=== PATIENT | female | born 1995 | race African-American/Black ===

== ENCOUNTER 2022-06-01 05:25 | Emergency (ER) | payer OTHER ==
[~2022-06-01] VITALS: Ht 167.6 cm; Wt 61.4 kg
[2022-06-01 05:26] VITALS: BP 134/98
[2022-06-01] MEDS ORDERED: HYDR25OIN TOP (06:43)
== END 2022-06-01 06:52 | disposition home or self-care (01) ==
LOC: M ED 05:25
DX: L25.9 Unspecified contact dermatitis, unspecified cause (principal)

== ENCOUNTER 2022-07-06 09:24 | Emergency (ER) | payer OTHER ==
[~2022-07-06] VITALS: Ht 167.6 cm; Wt 58.0 kg
[~2022-07-06 09:24] MED LIST: HYDR25OIN TOP
[2022-07-06] MEDS ORDERED: IBUPROFEN 600MG TAB PO ONE (11:00)
[2022-07-06] MEDS ORDERED: ONDANSETRON 4MG ORAL DISINTEGRATING TAB PO ONE (11:00)
[2022-07-06 11:45] VITALS: BP 136/94
== END 2022-07-06 11:47 | disposition home or self-care (01) ==
LOC: M ED 09:24
DX: S00.33XA Contusion of nose, initial encounter (principal); W22.8XXA Striking against or struck by other objects, initial encounter; Y92.138 Other place on military base as the place of occurrence of the external cause; Y99.1 Military activity

== ENCOUNTER 2022-10-12 02:43 | Emergency (ER) | payer OTHER ==
[~2022-10-12] VITALS: Ht 167.6 cm; Wt 59.1 kg
[2022-10-12 02:44] VITALS: BP 138/100
== END 2022-10-12 11:18 | disposition left against medical advice (07) ==
LOC: M ED 02:43
DX: Z53.21 Procedure and treatment not carried out due to patient leaving prior to being seen by health care provider (principal)

== ENCOUNTER 2022-10-12 12:02 | Emergency (ER) | payer OTHER ==
[~2022-10-12] VITALS: Ht 167.6 cm; Wt 59.4 kg
[2022-10-12 14:57] VITALS: BP 136/89
== END 2022-10-12 15:02 | disposition home or self-care (01) ==
LOC: M ED 12:02
DX: R50.9 Fever, unspecified (principal); B34.8 Other viral infections of unspecified site

== ENCOUNTER 2023-02-20 17:09 | Emergency (ER) | payer OTHER ==
[~2023-02-20] VITALS: Ht 165.1 cm; Wt 63.2 kg
[2023-02-20] MEDS ORDERED: ADDE20CA3 PO (17:16)
[2023-02-20] MEDS ORDERED: AMIT10TA7 PO (17:16)
[2023-02-20] MEDS ORDERED: IBUP-1022 PO (20:11)
[2023-02-20 20:18] VITALS: BP 138/108
== END 2023-02-20 20:29 | disposition home or self-care (01) ==
LOC: M ED 17:09
DX: U07.1 COVID-19 (principal); N93.9 Abnormal uterine and vaginal bleeding, unspecified

== ENCOUNTER 2023-04-30 08:16 | Emergency (ER) | payer OTHER ==
[~2023-04-30] VITALS: Ht 167.6 cm; Wt 63.6 kg
[~2023-04-30 08:16] MED LIST changes: +ADDE20CA3 PO; +AMIT10TA7 PO; +IBUP-1022 PO
[2023-04-30 13:38] LABS: GC DNA AMPLIFICATION NEGATIVE (NEGATIVE)
[2023-04-30] MEDS ORDERED: DOXYCYCLINE HYCLATE 100MG TABLET PO ONE (13:50)
[2023-04-30] MEDS ORDERED: DOXY100T PO (13:53)
[2023-04-30 14:08] VITALS: BP 134/97; TEMP 98.2; O2SAT 100
== END 2023-04-30 14:34 | disposition home or self-care (01) ==
LOC: M ED 08:16
DX: A74.9 Chlamydial infection, unspecified (principal); F90.9 Attention-deficit hyperactivity disorder, unspecified type; Z79.899 Other long term (current) drug therapy

== ENCOUNTER 2023-06-23 09:49 | Emergency (ER) | payer OTHER ==
[~2023-06-23] VITALS: Ht 167.6 cm; Wt 61.4 kg
[2023-06-23 09:49] VITALS: TEMP 98.7
[~2023-06-23 09:49] MED LIST changes: +DOXY100T PO
[2023-06-23] MEDS ORDERED: PNV,1TAB3 (10:23)
[2023-06-23] MEDS ORDERED: NAPR-837 PO (13:24)
[2023-06-23 13:34] VITALS: BP 140/90; O2SAT 100
== END 2023-06-23 13:36 | disposition home or self-care (01) ==
LOC: M ED 09:49
DX: S63.92XA Sprain of unspecified part of left wrist and hand, initial encounter (principal); W10.8XXA Fall (on) (from) other stairs and steps, initial encounter; Y92.89 Other specified places as the place of occurrence of the external cause; Y93.89 Activity, other specified; Y99.8 Other external cause status; F90.9 Attention-deficit hyperactivity disorder, unspecified type; Z79.899 Other long term (current) drug therapy

== ENCOUNTER 2023-07-24 18:30 | Emergency (ER) | payer OTHER ==
[~2023-07-24] VITALS: Ht 167.6 cm; Wt 60.9 kg
[~2023-07-24 18:30] MED LIST changes: +NAPR-837 PO; +PNV,1TAB3
[2023-07-24 18:31] VITALS: BP 138/97; TEMP 98.6; O2SAT 100
[2023-07-24 22:02] LABS: BASO # 0.1 10^3/uL (0.0-0.2); BASO % 0.7 % (0.0-1.0); EOS # 0.1 10^3/uL (0.0-0.5); EOS % 0.7 % (0.0-3.0); HEMATOCRIT 35.3 % (36.0-47.0); HEMOGLOBIN 11.3 g/dl (12.0-15.5); LYMPH # 2.5 10^3/uL (1.5-5.0); LYMPH % 36.8 % (24.0-44.0); MEAN CORPUSCULAR HEMOGLOBIN 28.3 pg (27.0-33.0); MEAN CORPUSCULAR VOLUME 88.5 fl (80.0-96.0); MONO # 0.5 10^3/uL (0.0-0.8); MONO % 7.8 % (2.0-8.0); NEUTROPHILS # 3.7 10^3/uL (1.5-8.5); NEUTROPHILS % 53.7 % (36.0-66.0); PLATELET COUNT, AUTOMATED 414 10^3/uL (150-450); RED BLOOD COUNT 3.99 10^6/uL (4.00-5.40); WHITE BLOOD COUNT 6.9 10^3/uL (4.0-10.0)
[2023-07-24 22:37] LABS: MONO SCRN NEGATIVE (NEGATIVE)
[2023-07-24 22:38] LABS: RSV AMPLIFICATION NEGATIVE (NEGATIVE)
[2023-07-24] MEDS ORDERED: PRED20TA PO (22:44)
[2023-07-24] MEDS ORDERED: ONDA4TAB6 PO (22:44)
[2023-07-24] MEDS ORDERED: VALA1TAB5 PO (22:44)
[2023-07-26] MEDS ORDERED: AMOX500C PO (13:02)
== END 2023-07-24 22:50 | disposition home or self-care (01) ==
LOC: M ED 18:30
DX: B95.0 Streptococcus, group A, as the cause of diseases classified elsewhere (principal); R21 Rash and other nonspecific skin eruption; M79.10 Myalgia, unspecified site

== ENCOUNTER 2023-08-28 22:20 | Emergency (ER) | payer OTHER ==
[~2023-08-28] VITALS: Ht 170.2 cm; Wt 60.0 kg
[~2023-08-28 22:20] MED LIST changes: +AMOX500C PO; +MIRA3350 PO; +ONDA4TAB6 PO; +PRED20TA PO; +VALA1TAB5 PO
[2023-08-29 01:28] VITALS: BP 115/65; TEMP 98.9; O2SAT 100
[2023-08-29] MEDS ORDERED: SANTYL OINT 30GM TOP ONE (01:45)
[2023-08-29] MEDS ORDERED: NORCO, ANEXSIA 5/325MG TABLET (HYDROcodone/ACETAMINOPHEN) PO ONE (01:45)
[2023-08-29] MEDS ORDERED: BACITRACIN OINTMENT 30GM TUBE TOP ONE (01:45)
[2023-08-29] MEDS ORDERED: SANT250O8 TOP (01:50)
[2023-08-29] MEDS ORDERED: CEPH500C PO (01:50)
[2023-08-29] MEDS ORDERED: BACI500O8 TOP (01:50)
[2023-08-29] MEDS ORDERED: HYDR-3713 PO (01:50)
== END 2023-08-29 03:05 | disposition home or self-care (01) ==
LOC: M ED 22:20
DX: T24.211A Burn of second degree of right thigh, initial encounter (principal); T24.212A Burn of second degree of left thigh, initial encounter; T31.0 Burns involving less than 10% of body surface; X12.XXXA Contact with other hot fluids, initial encounter; Y92.009 Unspecified place in unspecified non-institutional (private) residence as the place of occurrence of the external cause; Y93.89 Activity, other specified; F90.9 Attention-deficit hyperactivity disorder, unspecified type; Z79.899 Other long term (current) drug therapy

== ENCOUNTER 2023-09-26 18:01 | Emergency (ER) | payer OTHER ==
[~2023-09-26] VITALS: Ht 167.6 cm; Wt 62.7 kg
[~2023-09-26 18:01] MED LIST changes: +BACI500O8 TOP; +CEPH500C PO; +HYDR-3713 PO; +SANT250O8 TOP
[2023-09-26] MEDS ORDERED: IBUP200C25 PO (18:14)
[2023-09-26] MEDS ORDERED: KETO2CR TOP (23:14)
[2023-09-26] MEDS ORDERED: HYDR25OIN TOP (23:14)
[2023-09-26 23:41] VITALS: BP 143/101; TEMP 98.9; O2SAT 99
== END 2023-09-26 23:47 | disposition home or self-care (01) ==
LOC: M ED 18:01
DX: R21 Rash and other nonspecific skin eruption (principal); B35.4 Tinea corporis; Z79.899 Other long term (current) drug therapy

== ENCOUNTER 2023-10-14 11:55 | Emergency (ER) | payer OTHER ==
[~2023-10-14] VITALS: Ht 167.6 cm; Wt 62.9 kg
[~2023-10-14 11:55] MED LIST changes: +IBUP200C25 PO; +KETO2CR TOP
[2023-10-14] MEDS ORDERED: FLUORESCEIN OPHTH 1MG STRIP OD ONE (12:35)
[2023-10-14] MEDS ORDERED: PROPARACAINE 0.5% OPHTH SOL 15ML OD ONE (12:35)
[2023-10-14] MEDS ORDERED: OPTI0.5D5 OP (13:19)
[2023-10-14 13:34] VITALS: BP 135/89; TEMP 98.1; O2SAT 98
== END 2023-10-14 13:35 | disposition home or self-care (01) ==
LOC: M ED 11:55
DX: B30.9 Viral conjunctivitis, unspecified (principal); F32.A Depression, unspecified; F90.9 Attention-deficit hyperactivity disorder, unspecified type; Z79.899 Other long term (current) drug therapy

== ENCOUNTER 2023-11-03 07:30 | Emergency (ER) | payer OTHER ==
[~2023-11-03] VITALS: Ht 167.6 cm; Wt 64.1 kg
[~2023-11-03 07:30] MED LIST changes: +OPTI0.5D2 OP
[2023-11-03] MEDS ORDERED: GUAI1SOL2 PO (09:45)
[2023-11-03 10:17] VITALS: BP 140/80; TEMP 99.7; O2SAT 100
== END 2023-11-03 10:24 | disposition home or self-care (01) ==
LOC: M ED 07:30
DX: R07.0 Pain in throat (principal); B34.8 Other viral infections of unspecified site; B97.10 Unspecified enterovirus as the cause of diseases classified elsewhere; F90.9 Attention-deficit hyperactivity disorder, unspecified type; Z79.899 Other long term (current) drug therapy

== ENCOUNTER 2024-01-31 08:41 | Emergency (ER) | payer OTHER ==
[~2024-01-31] VITALS: Ht 167.6 cm; Wt 63.1 kg
[~2024-01-31 08:41] MED LIST changes: +GUAI1SOL2 PO
[2024-01-31 12:20] VITALS: BP 150/100; TEMP 97.8; O2SAT 99
== END 2024-01-31 12:23 | disposition home or self-care (01) ==
LOC: M ED 08:41
DX: L73.1 Pseudofolliculitis barbae (principal); F90.9 Attention-deficit hyperactivity disorder, unspecified type; Z79.899 Other long term (current) drug therapy

== ENCOUNTER 2024-02-10 10:17 | Emergency (ER) | payer OTHER ==
[~2024-02-10] VITALS: Ht 167.6 cm; Wt 61.4 kg
[2024-02-10] MEDS ORDERED: AUGM500T34 PO (11:39)
[2024-02-10 11:51] VITALS: BP 136/80; TEMP 98.4; O2SAT 100
== END 2024-02-10 11:52 | disposition home or self-care (01) ==
LOC: M ED 10:17
DX: K08.89 Other specified disorders of teeth and supporting structures (principal); Z79.2 Long term (current) use of antibiotics; Z79.899 Other long term (current) drug therapy

== ENCOUNTER 2024-02-18 09:48 | Emergency (ER) | payer OTHER ==
[~2024-02-18] VITALS: Ht 167.6 cm; Wt 58.3 kg
[~2024-02-18 09:48] MED LIST changes: +AUGM500T34 PO
[2024-02-18 11:17] LABS: BASO % 0.5 % (0.0-1.0); EOS # 0.2 10^3/uL (0.0-0.5); EOS % 2.8 % (0.0-3.0); HEMATOCRIT 36.9 % (36.0-47.0); HEMOGLOBIN 12.1 g/dl (12.0-15.5); LYMPH % 16.5 % (24.0-44.0); MEAN CORPUSCULAR HEMOGLOBIN 29.2 pg (27.0-33.0); MEAN CORPUSCULAR HGB CONC 32.8 g/dl (32.0-36.5); MEAN CORPUSCULAR VOLUME 89.1 fl (80.0-96.0); MONO # 0.3 10^3/uL (0.0-0.8); MONO % 5.2 % (2.0-8.0); NEUTROPHILS # 4.5 10^3/uL (1.5-8.5); NEUTROPHILS % 74.7 % (36.0-66.0); PLATELET COUNT, AUTOMATED 354 10^3/uL (150-450); RED BLOOD COUNT 4.14 10^6/uL (4.00-5.40)
[2024-02-18 11:41] LABS: LIPASE 28 U/L (12-53)
[2024-02-18 11:43] LABS: ALBUMIN 3.9 G/DL (3.2-5.2); ALKALINE PHOSPHATASE 49 U/L (46-116); ALT/SGPT 15 U/L (7.0-40); AST/SGOT 19 U/L (<34); BILIRUBIN,DIRECT 0.2 MG/DL (<0.4); BILIRUBIN,TOTAL 0.7 MG/DL (0.3-1.2); TOTAL PROTEIN 7.7 G/DL (5.7-8.2)
[2024-02-18 11:48] LABS: HCG, SERUM QUALITATIVE NEGATIVE (NEGATIVE)
[2024-02-18] MEDS: NS 1,000 ML IV ONE (12:07)
[2024-02-18] MEDS: ONDANSETRON 4MG 2ML VIAL IV ONE (12:07)
[2024-02-18] MEDS ORDERED: ONDA4TAB6 PO (13:24)
[2024-02-18 13:34] VITALS: BP 133/81; TEMP 97.2; O2SAT 98
== END 2024-02-18 13:35 | disposition home or self-care (01) ==
LOC: M ED 11:02
DX: R11.2 Nausea with vomiting, unspecified (principal); R19.7 Diarrhea, unspecified; B34.9 Viral infection, unspecified; I10 Essential (primary) hypertension; Z79.899 Other long term (current) drug therapy
CPT/HCPCS: 80047; 80076; 83690; 84703; 85025; 87486; 87581; 87633; 87798; 96361; 96374; 99284; J2405

== ENCOUNTER 2024-02-26 07:06 | Emergency (ER) | payer OTHER ==
[~2024-02-26] VITALS: Ht 167.6 cm; Wt 59.9 kg
[2024-02-26] MEDS: NS 1,000 ML IV ONE (10:59)
[2024-02-26] MEDS: ONDANSETRON 4MG 2ML VIAL IV ONE (11:00)
[2024-02-26] MEDS: KETOROLAC 30 MG/ML 1ML VIAL IV ONE (11:00)
[2024-02-26 11:13] LABS: BASO % 0.4 % (0.0-1.0); HEMATOCRIT 38.4 % (36.0-47.0); HEMOGLOBIN 12.5 g/dl (12.0-15.5); LYMPH # 1.1 10^3/uL (1.5-5.0); LYMPH % 11.7 % (24.0-44.0); MEAN CORPUSCULAR HEMOGLOBIN 29.7 pg (27.0-33.0); MEAN CORPUSCULAR HGB CONC 32.6 g/dl (32.0-36.5); MEAN CORPUSCULAR VOLUME 91.2 fl (80.0-96.0); MONO # 0.4 10^3/uL (0.0-0.8); MONO % 3.9 % (2.0-8.0); NEUTROPHILS # 7.5 10^3/uL (1.5-8.5); NEUTROPHILS % 83.7 % (36.0-66.0); PLATELET COUNT, AUTOMATED 370 10^3/uL (150-450); RED BLOOD COUNT 4.21 10^6/uL (4.00-5.40)
[2024-02-26 11:34] LABS: LIPASE 31 U/L (12-53)
[2024-02-26 11:36] LABS: ALBUMIN 3.6 G/DL (3.2-5.2); ALKALINE PHOSPHATASE 51 U/L (46-116); ALT/SGPT 14 U/L (7.0-40); AST/SGOT 21 U/L (<34); BILIRUBIN,DIRECT 0.2 MG/DL (<0.4); BILIRUBIN,TOTAL 0.8 MG/DL (0.3-1.2); BLOOD UREA NITROGEN 14 MG/DL (9-23); CALCIUM LEVEL 9.4 MG/DL (8.5-10.1); CARBON DIOXIDE LEVEL 29 MMOL/L (20-31); CHLORIDE LEVEL 104 MMOL/L (98-107); CREATININE FOR GFR 0.64 MG/DL (0.55-1.30); GLOMERULAR FILTRATION RATE > 60.0 (>60); GLUCOSE, FASTING 85 MG/DL (60-100); POTASSIUM SERUM 4.3 MMOL/L (3.5-5.1); SODIUM LEVEL 140 MMOL/L (136-145); TOTAL PROTEIN 7.8 G/DL (5.7-8.2)
[2024-02-26 11:57] LABS: HCG, SERUM QUALITATIVE NEGATIVE (NEGATIVE)
[2024-02-26] MEDS: METOCLOPRAMIDE INJ 10MG/2ML VIAL IV ONE (12:27)
[2024-02-26] MEDS ORDERED: ONDA4TAB6 PO (13:50)
[2024-02-26 14:10] VITALS: BP 140/99; TEMP 98.3; O2SAT 100
== END 2024-02-26 14:12 | disposition home or self-care (01) ==
LOC: M ED 07:06
DX: A05.9 Bacterial foodborne intoxication, unspecified (principal); F90.9 Attention-deficit hyperactivity disorder, unspecified type; Z79.899 Other long term (current) drug therapy
CPT/HCPCS: 80048; 80076; 83690; 84703; 85025; 87486; 87581; 87633; 87798; 96374; 96375; 99284; J1885; J2405; J2765